=== PATIENT | male | born 1945 | race Caucasian/White ===

== ENCOUNTER 2023-01-08 17:13 | Emergency (ER) | payer MEDICARE, SELFPAY ==
[2023-01-08] VITALS (8 sets, daily range): BP systolic 157–162; BP diastolic 72–112; PULSE 77–81; RESP 18; TEMP 36.3; O2SAT 96–100
--- NOTE | ~2023-01-08 | US_ITS ---
EXAMINATION:US venous doppler LE RT INDICATION:Right leg swelling and pain TECHNIQUE: Multiple grayscale, color flow and Doppler images of the right lower extremity deep venous systems were obtained and reviewed. COMPARISON:No prior studies FINDINGS: The common femoral, superficial femoral and popliteal veins demonstrate normal respiratory variation, augmentation and compressibility. Color flow is also seen within the posterior tibial, pe roneal, greater saphenous and profunda veins. IMPRESSION: 1: No lower extremity deep venous thrombosis. Reviewed, dictated and finalized at location A. TES GRINDER
--- NOTE | 2023-01-08 19:11 | PC.NURSE ---
Patient report given to [facility]. All questions answered and care of patient transferred.
--- NOTE | 2023-01-08 19:24 | ED.EXTPRO ---
HPI - Extremity Problem General Chief complaint: Extremity Problem,Nontraumatic <Brenden Donaldson PA-C - Last Filed: 01/08/23 20:49> Stated complaint: leg swelling <DARINEL Herbert Last Filed: 01/08/23 20:49> Time Seen by Provider: 01/08/23 18:28 <Brenden Donaldson PA-C - Last Filed: 01/08/23 20:49> History of Present Illness HPI Narrative: This is a 77-year-old male with past medical history of hypothyroidism and HLD who presents for right lower extremity swelling and pain x2 days. He states the pain began while he was walking in the store and he felt it in the back of his right calf. Unable to describe the quality of the pain, but states maybe like a tightness or a sore muscle. He states at rest there is no pain, but feels the pain whenever he walks. He also notes that the swelling began yesterday afternoon. Denies erythema, temperature change, numbness, tingling, weakness. Denies chest pain, shortness of breath, cough, headache, vision changes. <DARINEL Herbert Last Filed: 01/08/23 20:49> Related Data Allergies/Adverse reactions: Allergies Allergy/AdvReac Type Severity Reaction Status Date / Time No Known Allergies Allergy Verified 01/08/23 18:54 <DARINEL Herbert Last Filed: 01/08/23 20:49> Review of Systems Review of Systems: CONSTITUTIONAL: Denies fever, chills, or sweats. EYES: Denies visual changes, redness, or discharge. ENT: Denies rhinorrhea, congestion, sore throat, or otalgia. CARDIOVASCULAR: Denies chest pain, palpitations, or edema. RESPIRATORY: Denies cough or dyspnea. GASTROINTESTINAL: Denies abdominal pain, nausea, vomiting, or diarrhea. GENITOURINARY: Denies dysuria or hematuria. SKIN: Denies rash or itching. Denies any cool skin. MUSCULOSKELETAL: Endorses right lower extremity swelling and pain. Denies back pain, joint pain. NEUROLOGIC: Denies headache, numbness, dizziness, or weakness. PSYCHIATRIC: Denies anxiety or depression. <DARINEL Herbert Last Filed: 01/08/23 20:49> PMFSH Family History Family History: Family History Father Malignant neoplasm of prostate, Onset Age: 70 Other Family history of cardiovascular disease No family history of hypertension No family history of malignant neoplasm <Brenden Donaldson PA-C - Last Filed: 01/08/23 20:49> Social History Social History: Social History Smoking status: Never smoker Alcohol intake: never <Brenden Donaldson PA-C - Last Filed: 01/08/23 20:49> Exam Narrative: GENERAL: Well-appearing, well-nourished, and in no acute distress. HEAD: Normocephalic, atraumatic. EYES: PERRLA and EOMI. ENT: Nares clear, no rhinorrhea or epistaxis. Mucous membranes moist. Oropharynx without tonsillar hypertrophy exudate or other lesions. NECK: Supple. No adenopathy or masses. CHEST: No respiratory distress. Clear to auscultation. No wheezes rales or rhonchi HEART: Regular rate and rhythm. No murmur heard. Normal peripheral pulses. Bilateral DP and PT pulses intact and symmetric. ABDOMEN: Soft, nontender, nondistended, normal active bowel sounds. EXTREMITIES: Normal range of motion. Right lower extremity swelling is present when compared to left but there is no edema. Soft compartments. There is no tenderness present in the right lower extremity. No palpable cord. Homans' sign negative. SKIN: Warm, dry, no rash. Negative for erythema. No temperature change in the lower extremities. NEURO: Alert and oriented x3. No focal deficits. 5 out of 5 strength and sensation in bilateral lower extremities PSYCH: Normal mood and affect. <Brenden Donaldson PA-C - Last Filed: 01/08/23 20:49> Course ORDER PACKER OR PACKAGER/PA Physician Supervision For this encounter, I have reviewed the mid-level provider documentation, treatment plan and medical decision making. I have had [id number] time with the patient. This
[2023-01-08 20:13] LABS: Basophils Percent Auto 0.6 % (0.2-1.2); Eosinophils Absolute Auto 0.1 K/mm3 (0-0.3); Eosinophils Percent Auto 1.3 % (0-4.4); Hematocrit 44.1 % (42.0-52.0); Hemoglobin 14.8 g/dL (14.0-18.0); Immature Granulocyte Absolute 0.01 K/mm3 (0.00-0.031); Immature Granulocyte Percent A 0.2 % (0-0.5); Lymphocytes Absolute Auto 1.99 K/mm3 (0.9-3.2); Lymphocytes Percent Auto 31.1 % (18.3-44.2); Mean Corpuscular HGB Conc 33.6 g/dl (32-36); Mean Corpuscular Hemoglobin 31.4 pg (26-34); Mean Corpuscular Volume 93.4 fl (80-100); Mean Platelet Volume 11.7 fl (7.4-10.4); Monocytes Absolute Auto 0.6 K/mm3 (0.1-0.6); Neutrophils Absolute Auto 3.6 K/mm3 (1.3-6.7); Neutrophils Percent Auto 56.8 % (45.5-73.1); Platelet Count Result 175 k/mm3 (150-375); Red Blood Count 4.72 M/mm3 (4.6-6.20); Red Cell Distribution Width 12.3 % (11.5-14.5); White Blood Count 6.4 K/mm3 (4.5-10.0)
[2023-01-08 20:22] LABS: Alanine Aminotransferase 27 U/L (6-50); Albumin Level 4.1 g/dL (3.5-5.1); Alkaline Phosphatase 82 U/L (38-126); Anion Gap 5 mmol/L (8-16); Aspartate Amino Transferase 27 U/L (17-59); Bilirubin,Total 0.8 mg/dL (0.2-1.3); Blood Urea Nitrogen 22 mg/dL (9-20); Calcium 8.3 mg/dL (8.4-10.2); Carbon Dioxide 29 mmol/L (22-30); Chloride 106 mmol/L (98-107); Creatine Kinase 119 U/L (55-170); Estimated CRCL calculation 72 ml/min; Estimated Glomerular Filt Rate > 60; Glucose 97 mg/dL (65-110); Sodium 140 mmol/L (137-145)
== END 2023-01-08 21:10 | disposition home or self-care (01) ==
PROVIDERS: Emergency Provider Physician Assistant; PCP Family Medicine
DX: M79.661 Pain in right lower leg (principal); E03.9 Hypothyroidism, unspecified; E78.5 Hyperlipidemia, unspecified
CPT/HCPCS: 36415; 80053; 82550; 85025; 93971; 99284

== ENCOUNTER 2023-04-05 12:56 | Outpatient (CLI) | payer MEDICARE, SELFPAY | END 2023-04-05 12:57 | disposition home or self-care (01) | LOC: ANHAUDASC 12:58 | PROVIDERS: PCP Family Medicine; Visit Provider Otolaryngology | DX: H93.13 Tinnitus, bilateral (principal); H90.3 Sensorineural hearing loss, bilateral | CPT/HCPCS: 92557; 92567 ==

== ENCOUNTER 2023-07-30 11:55 | Outpatient (CLI) | payer MEDICARE, SELFPAY ==
--- NOTE | ~2023-07-30 | PE_ITS ---
EXAMINATION: PET_PETPSMAST_PT DATE: 07/30/2023 15:42 INDICATION: Prostate cancer TECHNIQUE: 8.595 mCi of pipflufolastat F-18 (18-F-DCFPyL) was administered i.v. Low dose computed to mography (CT) images were acquired from the base of the brain to the base of the brain to the proxima l thighs for attenuation correction and anatomic localization. Positron emission tomography (PET) javier ges were acquired in the same distribution beginning minutes after injection. Images including fused PET/CT images were reconstructed in axial, coronal, and sagittal planes. Automated exposure control t [employer] was employed. The dose-length product was 727.23mGy-cm. COMPARISON: CT studies dated 09/06/2015 and 02/06/2015 and MRI dated 02/14/2015 FINDINGS: Head/neck: Typical pattern of symmetric physiologic increased activity in the lacrimal, parotid and submandibula r glands as well as along the mucosa of the nasal and oral cavities, the eder-, naso- and hypopharynx, the glottis and esophagus. Additional relatively symmetric mild likely physiologic neural ganglia up take anterior to the bilateral C7 neural foramina. No pathologically enlarged cervical lymphadenopath y or suspicious foci of increased uptake in the visualized head or neck. Chest: 7 mm groundglass nodule in the posterior right apex without PSMA activity. Elevated right hemidiaphra gm with mild atelectasis in the right lower lung zone. No pleural effusion. Heart size is normal. Sma ll amount of atherosclerotic coronary artery calcification and aortic valve calcific lesion. No peric ardial effusion. Thoracic aorta is normal in caliber. No pathologically enlarged or PSMA avid thoraci c lymphadenopathy. Abdomen/pelvis/proximal thighs: Physiologic renal accumulation and excretion of activity in the kidneys, bladder and along portions o f ureters. 1.6 cm left renal cyst. There were 4 small nonobstructing renal stones in the left kidney measuring up to 4 mm. Low-attenuation cyst with corresponding photopenic PET defects measuring 4.0 cm and the right hepatic lobe and 1.1 cm in the left hepatic lobe. There is a nonspecific larger 3.5 x 2.5 cm more subtle hypodense mass also with corresponding photopenic defect at the junction of the ri ght, left and caudate lobes of the liver which has increased from 1.8 x 1.[address] dated 02/06/2015. The chronicity strongly favors a benign etiology. Additional subtle hypodense lesion at the dome of the liver measuring approximately 2.3 cm which is unable to be distinguished from the surrounding gildardo er on the PET imaging which is without correlate on the prior imaging from 2015. Normal degree and sl ightly heterogenous pattern of increased uptake throughout spleen without radiologic correlate or dom inant PSMA avid lesion. No PSMA uptake associated with 1.6 cm cystic lesion at the posterior body of the pancreas which is unchanged since 2015 also strongly favoring a benign etiology. The gallbladder and bilateral adrenal glands are normal. Moderate uptake scattered throughout the bowels with typical duodenal and proximal jejunal predominance and without radiologic correlate, also likely physiologic . Normal appendix. Small fat-containing umbilical hernia. Approximately 4 x 1.5 cm region of prominen t increased uptake with maximal SUV of 30.6 at the right anterior aspect of the enlarged prostate con sistent with known biopsy-proven prostate cancer. No other abnormal foci of increased uptake or patho logically enlarged lymphadenopathy in the abdomen, pelvis or proximal thighs. Musculoskeletal: No suspicious lytic, blastic or PSMA avid bone lesions. IMPRESSION: 1. 4 x 1.5 cm region of prominent increased uptake at the right anterior aspect of the prostate consi stent with primary prostate cancer. No lesion suspicious for metastatic disease. 2. Indeterminate 7 mm groundglass nodule at the right apex for which 6-12 month follow-up noncontrast chest CT would be re
== END 2023-07-30 11:56 | disposition home or self-care (01) ==
PROVIDERS: PCP Family Medicine; Visit Provider Urology
DX: C61 Malignant neoplasm of prostate (principal)
CPT/HCPCS: 78815; A9595

== ENCOUNTER 2023-12-25 07:15 | Outpatient (CLI) | payer MEDICARE, SELFPAY ==
--- NOTE | ~2023-12-25 | MR_ITS ---
EXAMINATION: MR pelvis wo/w con DATE: 12/25/2023 08:59 INDICATION: Malignant neoplasm of prostate. TECHNIQUE: Magnetic resonance imaging (MRI) of the pelvis was performed without and with 20 mL MultiH ance intravenous contrast. COMPARISON: PET/CT 08/29/2023 FINDINGS: The prostate is moderately enlarged. There is a gel spacer between the prostate and rectum. There is prominent fat in right inguinal canal that may be a hernia. There is diffuse bladder wall thickening, likely secondary to chronic outlet obstruction. There is an umbilical hernia containing fat. There a re no pathologically enlarged lymph nodes. There is no free intraperitoneal fluid. IMPRESSION: 1. Moderately enlarged prostate. No evidence of metastatic disease. Reviewed, dictated and finalized at location E. [facility] [employer]ER
== END 2023-12-25 07:16 | disposition home or self-care (01) ==
PROVIDERS: PCP Family Medicine; Visit Provider Radiology Radiation Oncology
DX: N40.0 Benign prostatic hyperplasia without lower urinary tract symptoms (principal); C61 Malignant neoplasm of prostate
CPT/HCPCS: 72197; A9577

== ENCOUNTER 2024-08-16 13:21 | Outpatient (CLI) | payer MEDICARE, SELFPAY ==
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
--- NOTE | ~2024-08-16 | CT_ITS ---
EXAMINATION: CT diagnostic chest wo con DATE: 08/16/2024 14:02 INDICATION: Prostate cancer TECHNIQUE: Computed tomography (CT) of the chest was performed without intravenous contrast. Addition al 3D reconstructions utilizing coronal maximum intensity projection (MIP) were performed. Automated exposure control and iterative reconstruction technique were employed. The dose-length product was 55 7.24 mGy-cm. COMPARISON: PET/CT dated 07/30/2023 FINDINGS: Unchanged linear discoid atelectasis/scarring in the right middle and lower lobes. 5 mm right upper l obe nodule which corresponds to appear to be a millimeter or less nodule in the prior study likely di screpancy likely due to some motion on the prior study. There are also few unchanged tiny likely intr afissural lymph nodes along the left and right major fissures. No other suspicious pulmonary nodules, pneumonia, pulmonary edema or other pulmonary infiltrates. No pleural effusion. Heart size is normal . Small amount scattered coronary artery calcifications. Aortic valve calcific lesion. No pericardial effusion. Thoracic aorta is normal in caliber. No pathologically enlarged thoracic lymphadenopathy. Small gallstone in the normal-appearing gallbladder. There is also bilateral nonobstructing nephrolit hiasis. Examination of hepatic and liver cysts further detailed on separate dictated CT of the abdome n and pelvis. Mild to moderate thoracic spondylosis. No suspicious lytic or blastic bone lesions. IMPRESSION: 1. Indeterminate 5 mm right upper lobe nodule which given size and absence of additional suspicious p ulmonary nodules the most consistent with old granulomatous disease. No other lesions suspicious for metastatic disease. 2. Cholelithiasis. 2. Nonobstructing bilateral nephrolithiasis. Reviewed, dictated and finalized at location A. IMPRESSION: 1. Indeterminate 5 mm right upper lobe nodule which given size and absence of a dditional suspicious pulmonary nodules the most consistent with old granulomato us disease. No other lesions suspicious for metastatic disease. 2. Cholelithiasis. 2. Nonobstructing bilateral nephrolithiasis.
[2024-08-16 13:54] LABS: Estimated Glomerular Filt Rate 53
== END 2024-08-16 13:22 | disposition home or self-care (01) ==
LOC: ANHIMG 13:22
PROVIDERS: PCP Family Medicine; Visit Provider Urology
DX: C61 Malignant neoplasm of prostate (principal); N20.0 Calculus of kidney; K80.20 Calculus of gallbladder without cholecystitis without obstruction; R91.1 Solitary pulmonary nodule
CPT/HCPCS: 71250; 74170; Q9967